=== PATIENT | female | born 1970 ===

== ENCOUNTER 2016-12-23 09:06 | Inpatient (IN) | payer MEDICAID, OTHER ==
[2016-12-23 09:16] VITALS: BMI 25.7
[2016-12-23] MEDS ORDERED: Sodium Chloride 0.9% 1,000 ML IV SCH (09:45)
[2016-12-23] MEDS ORDERED: Sodium Chloride 0.9% 1,000 ML ONE (09:53)
--- NOTE | 2016-12-23 09:54 | C.PDOC ---
History Of Present Illness 46-year-old female, PMHx includes Diabetes, Hypertension and Hyperlipidemia, presents to the emergency department, sent by PMD for abnormal bloodwork, that shows a low Sodium of 126 and high triglycerides. Patient is complaining of intermittent abdominal pain that she has had "for a while." Pain is in left flank and epigastric region. She notes three episodes of non-bloody/non-bilious vomiting three days ago. Currently denies any nausea. No fever or other complaints. Chief Complaint (Nursing): Abnormal Labs History Per: Patient History/Exam Limitations: no limitations Past Medical History Reviewed: Historical Data, Nursing Documentation, Vital Signs Vital Signs: Last Vital Signs Temp 98.3 F 12/23/16 09:30 Pulse 88 12/23/16 09:30 Resp 18 12/23/16 09:30 BP 130/88 12/23/16 09:30 Pulse Ox 99 12/23/16 12:14 - Medical History PMH: Anxiety, Depression, Diabetes, HTN, Hypercholesterolemia Denies: Hepatitis, HIV, Seizures, Sexually Transmitted Disease Surgical History: Family History: States: No Known Family Hx - Social History Hx Tobacco Use: No Hx Alcohol Use: No Hx Substance Use: No - Immunization History Hx Tetanus Toxoid Vaccination: Yes Hx Influenza Vaccination: No Hx Pneumococcal Vaccination: No Review Of Systems Except As Marked, All Systems Reviewed And Found Negative. Constitutional: Negative for: Fever, Chills Cardiovascular: Negative for: Chest Pain Respiratory: Negative for: Shortness of Breath Gastrointestinal: Positive for: Nausea, Vomiting, Abdominal Pain Musculoskeletal: Negative for: Back Pain Skin: Negative for: Rash Physical Exam - Physical Exam Appears: Non-toxic, No Acute Distress Skin: Warm, Dry, No Rash Head: Atraumatic, Normacephalic Eye(s): bilateral: Normal Inspection, PERRL, EOMI Nose: Normal Oral Mucosa: Moist Lips: Normal Appearing Neck: Normal ROM Cardiovascular: Rhythm Regular, No Murmur Respiratory: Normal Breath Sounds, No Accessory Muscle Use Gastrointestinal/Abdominal: Soft, No Tenderness Back: Normal Inspection Extremity: Normal ROM Neurological/Psych: Oriented x3, Normal Speech ED Course And Treatment - Laboratory Results Result Diagrams: 12/23/16 10:06 12/23/16 10:06 O2 Sat by Pulse Oximetry: 99 Medical Decision Making Medical Decision Making: pt with outpt labs shows triglycerides, >5000. ekg nsr [address] t wave changes 1215: ct unrarkable. case discussed with dr stacy, will admit for possible plasma exchange Disposition - Disposition Disposition Time: 13:13 Condition: STABLE - Clinical Impression Clinical Impression: Hypertriglyceridemia - Scribe Statement The provider has reviewed the documentation as recorded by the Scribe (Gilles Soria) All medical record entries made by the Scribe were at my direction and personally dictated by me. I have reviewed the chart and agree that the record accurately reflects my personal performance of the history, physical exam, medical decision making, and the department course for this patient. I have also personally directed, reviewed, and agree with the discharge instructions and disposition. Decision To Admit - Pt Status Changed To: Hospital Disposition Of: Inpatient - Admit Certification Admit to Inpatient:: After my assessment, the patient will require hospitalization for at least two midnights. This is because of the severity of symptoms shown, intensity of services needed, and/or the medical risk in this patient being treated as an outpatient. - InPatient: Physician Admission Certification: I certify that this patient requires 2 or more midnights of care for the following reason:: pt will likely need plasma exchange for increased triglycerides - . Bed Request Type: Regular Admitting Physician: Dean Manzanares Patient Diagnosis: Hypertriglyceridemia
[2016-12-23 10:11] LABS: BASO # 0.1 K/uL (0.0-0.2); BASO % 1.6 % (0.0-2.0); EOS % 0.6 % (0.0-4.0); LYMPH # 2.8 K/uL (1.0-4.3); LYMPH % 45.4 % (20.0-40.0); MEAN PLATELET VOLUME 9.7 fL (7.2-11.7); MONO # 0.3 K/uL (0.0-0.8); MONO % 5.2 % (0.0-10.0); NEUT # 2.9 K/uL (1.8-7.0); NEUT % 47.2 % (50.0-75.0); NRBC % 0.4 % (0.0-2.0); RBC 4.39 Mil/uL (3.80-5.20); RED CELL DISTRIBUTION WIDTH 13.3 % (11.5-14.5); WHITE BLOOD COUNT 6.1 K/uL (4.8-10.8)
[2016-12-23 10:17] LABS: ALBUMIN 3.5 g/dL (3.5-5.0)
[2016-12-23 10:20] LABS: ALB/GLOB RATIO 0.9 (1.0-2.1); AST/SGOT 51 U/L (14-36); BLOOD UREA NITROGEN 11 mg/dL (7-17); GFR AFRICAN-AMERICAN > 60; GFR NON-AFRICAN AMERICAN > 60; INR 0.9; PROTHROMBIN TIME 10.1 SECONDS (9.7-12.2)
[2016-12-23 10:21] LABS: ALT/SGPT 39 U/L (9-52); CALCIUM 8.1 mg/dl (8.6-10.4); LIPASE 137 U/L (23-300)
[2016-12-23 10:45] LABS: OSMOLALITY,URINE 801 mosm/kg (300-1000)
[2016-12-23 11:03] LABS: MEAN CORPUSCULAR HEMOGLOBIN 28.7 pg (27.0-31.0); MEAN CORPUSCULAR HGB CONC 28.7 g/dL (33.0-37.0)
[2016-12-23 11:06] LABS: HEMOGLOBIN 12.4 g/dL (11.0-16.0)
--- NOTE | 2016-12-23 11:46 | CT ---
PROCEDURE: CT scan abdomen pelvis dated 12/23/2016. HISTORY: Left flank pain. Technologist notation indicates hysterectomy 2010 COMPARISON: Comparison made with prior CT scan abdomen pelvis 02/03/2015 TECHNIQUE: Contiguous axial images of the abdomen and pelvis performed without oral or intravenous contrast material. Additional 2 dimensional sagittal and coronal reformats provided. Listen Radiation dose: Total exam DLP = 913.01 mGy-cm. This CT exam was performed using one or more of the following dose reduction techniques: Automated exposure control, adjustment of the mA and/or kV according to patient size, and/or use of iterative reconstruction technique. FINDINGS: LOWER THORAX: Bases are clear. No infiltrate effusion or basilar pneumothorax. Heart size normal. No evidence of significant pericardial effusion. LIVER: Liver is enlarged measuring nearly 20 cm in CC dimension. Moderate to significant fatty hepatic infiltration with some minimal fatty sparing about the gallbladder fossa. GALLBLADDER AND BILE DUCTS: The gallbladder is physiologically distended. No evidence of intraluminal gallbladder calculi. PANCREAS: Visualized portions of the pancreas appear unremarkable. No pancreatic mass collection or calcification. No significant pancreatic ductal dilatation. . SPLEEN: Spleen is upper limits of normal measuring approximately 12.4 cm in AP dimension. No splenic mass collection or calcification. ADRENALS: No adrenal lesions. KIDNEYS AND URETERS: There are 2 tiny and nonobstructing calculi lower pole left kidney 1 measuring 3 mm the other measuring 2 mm. . No definitive evidence of left-sided hydronephrosis. Rule out recently passed calculus The kidneys are relatively symmetric in size. No renal mass or collection seen. BLADDER: Urinary bladder is distended. No evidence of intraluminal urinary bladder calculi. REPRODUCTIVE: Uterus is not visualized consistent with prior hysterectomy. APPENDIX: Normal-appearing appendix best seen on coronal image number [id number]. No periappendiceal inflammatory changes BOWEL: Evaluation of the bowel is limited due to the lack of oral contrast material. Stomach is nondistended which presumably accounts for mild thick-walled appearance. Visualized loops of small bowel exhibit normal contour and caliber. No evidence of acute mechanical small bowel obstruction. Moderately large amount of stool seen throughout the colon consistent with mild fecal retention/constipation. PERITONEUM: Unremarkable. No fluid collection. No free air. LYMPH NODES: No significant/bulky adenopathy VASCULATURE: Unremarkable. No aortic aneurysm. BONES: Minor multilevel degenerative spondylosis of the lumbar spine. OTHER FINDINGS: None. IMPRESSION: There are 2 small nonobstructing calculi lower pole left kidney. No evidence of joshua hydronephrosis. No evidence of urinary bladder calculi seen. Status posthysterectomy. Hepatomegaly with moderate to significant fatty hepatic infiltration. Borderline splenomegaly. Mild constipation.
[2016-12-23] MEDS: Sodium Chloride 0.9% 1,000 ML IV SCH (14:17)
[2016-12-23 14:33] VITALS: RESP 20
--- NOTE | 2016-12-23 15:24 | CP.PCM.HP ---
<Charla GardinerKemar - Last Filed: 12/23/16 15:55> History of Present Illness - History of Present Illness History of Present Illness: CC: high triglycerides, cholesterol, and hyponatremia HPI: 46 year old female with PMhx of HTN, DM, hyperlipidemia, anxiety, depression, and arthritis, present to the ED for high triglycerides, cholesterol and hyponatremia. The patient was referred to the ED by her PMD, Dr. Chapman. She brought her lab results with her, which showed her triglycerides were 4556, cholesterol 718, sodium 126, and an A1c of 11.2. On admission, the patients cholesterol was 428 and the triglycerides were 5681. The patient reports going to the hospital for high triglycerides and cholesterol 7 years ago. Patient also reports have left flank pain and has stones in her kidneys for 3 months. She also reports having an on and off headache when she is stressed. Two weeks ago, the patient was depressed, nauseas and had episodes of vomiting but that resolved last week. Patient denies chest pain, abdominal pain, fever, chills, leg pain and swelling, nausea , and vision changes. PMD: Dr. Chapman PMHx: HTN, hyperlipidemia, DM, anxiety, depression, arthritis, two episodes of tachycardia (hospitalized 06/2016, 07/2016) PSx: ovarian cyst removal 1999, Cesarian section 2001 FamHx: mother/grandmother- [place]; "everyone has DM and high cholesterol" SocHx: denies tobacco, alcohol, and drug use; lives with her son; unemployed Allergies: NKDA Medications: Metformin 1,000mg BID, Glimepiride 4mg BID, Losartan potassium 100mg daily, trazadone 50mg daily, escitalopram 20mg daily, duloxetine 20mg daily, fenofibrate 200mg daily, atorvastatin 20mg daily, topiramate 50mg daily , vitamin D2 1.25mg once a week. Present on Admission - Present on Admission Any Indicators Present on Admission: Yes History of Uncontrolled Diabetes: Yes Review of Systems - Constitutional Constitutional: Headache. absent: Fatigue, Fever, Weakness - EENT Eyes: absent: Change in Vision, Other Visual Disturbances, Loss of Vision - Cardiovascular Cardiovascular: absent: Chest Pain, Dyspnea, Edema, Palpitations - Respiratory Respiratory: absent: Cough, Dyspnea - Gastrointestinal Gastrointestinal: absent: Abdominal Pain, Diarrhea, Nausea, Vomiting - Genitourinary Genitourinary: Flank Pain, Hx Renal/Bladder Calculi. absent: Dysuria, Urinary Frequency - Integumentary Integumentary: absent: Swelling - Neurological Neurological: Headaches. absent: Dizziness, Loss of Vision - Psychiatric Psychiatric: Anxiety, Depression - Endocrine Endocrine: Polyuria. absent: Palpitations Past Patient History - Infectious Disease Hx of Infectious Diseases: None - Past Social History Smoking Status: Never Smoked - CARDIAC Hx Hypercholesterolemia: Yes Hx Hypertension: Yes - PULMONARY Hx Tuberculosis: No - NEUROLOGICAL Hx Seizures: No - ENDOCRINE/METABOLIC Hx Diabetes Mellitus Type 2: Yes - HEMATOLOGICAL/ONCOLOGICAL Hx Human Immunodeficiency Virus (HIV): No - GENITOURINARY/GYNECOLOGICAL Hx Sexually Transmitted Disorders: No - PSYCHIATRIC Hx Anxiety: Yes Hx Depression: Yes Hx Substance Use: No - SURGICAL HISTORY Hx Surgeries: Yes Hx Section: Yes Hx Hysterectomy: Yes Other/Comment: fibroid surgery - ANESTHESIA Hx Anesthesia: Yes Hx Anesthesia Reactions: No Meds Allergies/Adverse Reactions: Allergies Allergy/AdvReac Type Severity Reaction Status Date / Time No Known Allergies Allergy Verified 12/23/16 09:11 Physical Exam - Head Exam Head Exam: NORMAL INSPECTION, NORMOCEPHALIC - Eye Exam Eye Exam: EOMI, Normal appearance - ENT Exam ENT Exam: Mucous Membranes Moist - Neck Exam Neck exam: Positive for: Full Rom, Normal Inspection - Respiratory Exam Respiratory Exam: Clear to Auscultation Bilateral, NORMAL BREATHING PATTERN. absent: Rales, Rhonchi, Wheezes - Cardiovascular Exam Cardiovascular Exam: REGULAR RHYTHM, +S1, +S2. absent: Systolic Murmur - GI/Abdominal Exam GI & Abdominal Exam: Normal Bowel Sounds, Soft, Tenderness (epigastric with deep palpation) - Extremities Exam Extremities exam: Positive for: normal inspection, pedal pulses present. Negative for: calf tenderness, pedal edema, tenderness - Back Exam Back exam: CVA tenderness (L) - Neurological Exam Neurological exam: Alert, Oriented x3 - Psychiatric Exam Psychiatric exam: Normal Affect, Normal Mood - Skin Skin Exam: Dry, Intact, Normal Color, Warm Results - Vital Signs Recent Vital Signs: Last Vital Signs Temp 98.2 F 12/23/16 14:08 Pulse 93 H 12/23/16 14:08 Resp 20 12/23/16 14:08 BP 139/85 12/23/16 14:08 Pulse Ox 98 12/23/16 14:08 - Labs Result Diagrams: 12/23/16 10:06 12/23/16 10:06 Assessment & Plan (1) Hypertriglyceridemia Assessment and Plan: Lab results from PMD: TG 4556, Cholesterol 718 On admission: TG 5681, Cholesterol 428 Cardio consult: Dr. Kaminski, help appreciated. Lipid panel: f/u Tricor 145mg PO QPM Lopid 600mg PO BID Crestor 20mg PO HS Status: Acute (2) Hyponatremia Assessment and Plan: Lab results from PMD: Na+ 126 On admission: Na+ 133, Serum Osmolality 302 Urine Osmolality 801, Urine random Na+ 56 NS @100mls/hr Monitor CMP Status: Acute (3) Diabetes Assessment and Plan: A1c: 11.2 Accuchecks ISS high Lantus 10 units HS Status: Acute (4) HTN (hypertension) Assessment and Plan: Monitor BP On admission: 130/88 Continue home medication: Losartan 100mg PO daily Status: Acute (5) Left flank pain Assessment and Plan: As per patient, has history of stones and pain for the past 3 months UA: f/u Abdominal US: f/u Rocephin 1gm IV BID Status: Acute (6) Depression Assessment and Plan: Continue home medications: escitalopram 20mg daily, duloxetine 20mg daily Status: Acute (7) Prophylactic measure Assessment and Plan: SCDs Pepcid 20mg PO BID Heparin 5,000 units SC Q8 Heart Healthy Diet, 2gm Accuchecks Status: Acute <Manzanares,Peter H - Last Filed: 12/24/16 09:07> Results - Vital Signs Recent Vital Signs: Last Vital Signs Temp 98.3 F 12/24/16 07:53 Pulse 77 12/24/16 07:53 Resp 20 12/24/16 07:53 BP 145/88 12/24/16 07:53 Pulse Ox 96 12/24/16 07:53 - Labs Result Diagrams: 12/24/16 06:27 12/24/16 06:27 Labs: Laboratory Results - last 24 hr 12/23/16 12/23/16 12/24/16 16:34 21:13 06:27 WBC 7.5 RBC 4.25 Hgb 12.8 Hct 37.2 MCV 87.6 MCH 30.0 MCHC 34.3 RDW 13.3 Plt Count 236 MPV 10.0 Neut % (Auto) 38.1 L Lymph % (Auto) 54.6 H [place] % (Auto) 6.1 Eos % (Auto) 0.5 Baso % (Auto) 0.7 Neut # 2.9 Lymph # 4.1 [place] # 0.5 Eos # 0.0 Baso # 0.1 Sodium Potassium Chloride Carbon Dioxide Anion Gap BUN Creatinine Est GFR ( Amer) Est GFR (Non-Af Amer) POC Glucose (mg/dL) 290 H 89 Random Glucose Calcium Total Bilirubin AST ALT Alkaline Phosphatase Total Protein Albumin Globulin Albumin/Globulin Ratio 12/24/16 12/24/16 06:27 07:08 WBC RBC Hgb Hct MCV MCH MCHC RDW Plt Count MPV Neut % (Auto) Lymph % (Auto) [place] % (Auto) Eos % (Auto) Baso % (Auto) Neut # Lymph # [place] # Eos # Baso # Sodium 129 L Potassium 4.4 Chloride 98 Carbon Dioxide 20 L Anion Gap 15 BUN 8 Creatinine 0.5 L Est GFR ( Amer) > 60 Est GFR (Non-Af Amer) > 60 POC Glucose (mg/dL) 259 H Random Glucose 220 H Calcium 7.7 L Total Bilirubin 1.1 AST 41 H ALT 43 Alkaline Phosphatase 94 Total Protein 6.4 Albumin 3.1 L Globulin 3.3 Albumin/Globulin Ratio 0.9 L Attending/Attestation - Attestation I have personally seen and examined this patient.: Yes I have fully participated in the care of the patient.: Yes I have reviewed all pertinent clinical information: Yes Notes (Text): Medical Attending: Patient was seen and examined by me. She was not in any acute distress when seen in ER 8A. She does have a very elevated blood glucose as well as cholesterol levels. She will need to have medications adjusted. There was some concern as well over potential hyponatremia however this was ok when checked in the ER. It is possible that the elevated cholesterol/ triglycerides found outpatient was interfereing with the Na level.
[2016-12-23] MEDS: (Novolin R) Insulin Human Regular 100 units/ml vial SC SCH ×2 (17:32→22:20)
[2016-12-23] MEDS: (Lantus) Insulin Glargine, Recombinant SC SCH (22:20)
[2016-12-24] MEDS: Sodium Chloride 0.9% 1,000 ML IV SCH ×4 (03:30→22:52)
[2016-12-24 06:48] LABS: BASO # 0.1 K/uL (0.0-0.2); BASO % 0.7 % (0.0-2.0); EOS % 0.5 % (0.0-4.0); LYMPH # 4.1 K/uL (1.0-4.3); LYMPH % 54.6 % (20.0-40.0); MONO # 0.5 K/uL (0.0-0.8); MONO % 6.1 % (0.0-10.0); NEUT # 2.9 K/uL (1.8-7.0); NEUT % 38.1 % (50.0-75.0); NRBC % 0.1 % (0.0-2.0); RED CELL DISTRIBUTION WIDTH 13.3 % (11.5-14.5); WHITE BLOOD COUNT 7.5 K/uL (4.8-10.8)
[2016-12-24 06:55] LABS: ALB/GLOB RATIO 0.9 (1.0-2.1); ALBUMIN 3.1 g/dL (3.5-5.0); ALT/SGPT 43 U/L (9-52); AST/SGOT 41 U/L (14-36); BLOOD UREA NITROGEN 8 mg/dL (7-17); CALCIUM 7.7 mg/dl (8.6-10.4); GFR AFRICAN-AMERICAN > 60; GFR NON-AFRICAN AMERICAN > 60
[2016-12-24 08:12] LABS: HEMOGLOBIN 12.8 g/dL (11.0-16.0); MEAN CELL VOLUME 87.6 fL (81.0-99.0); MEAN CORPUSCULAR HGB CONC 34.3 g/dL (33.0-37.0); RBC 4.25 Mil/uL (3.80-5.20)
--- NOTE | 2016-12-24 08:52 | CP.PCM.CON ---
<Simba Alvarez - Last Filed: 12/24/16 10:23> History of Present Illness - History of Present Illness History of Present Illness: PGY2 progress note for cardiology consult- Dr. Kaminski Ms. Salcido is a 46y/o F with PMhx of HTN, DM, hyperlipidemia, anxiety, depression and arthritis, who was sent into our ED for elevated triglycerides, cholesterol and hyponatremia. She reported to ED following the advice of her PMD Dr. Chapman due to recent lab results as follows: triglycerides 4556, cholesterol 718, sodium 126, and an A1c of 11.2. On admission, the patients was retested resulting in cholesterol of 428 and triglycerides were 5681. Patient also reports have left flank pain she believed were related to kidney stones and relapsing-remitting headache associated with stressed. Patient denied fever, chills, visual changes, chest pain, abdominal pain, lower extremity pain/swelling, and nausea. No acute events overnight as per nursing. This morning Ms. Salcido states that she is feeling well, only complains of a small headache. She denies chest pain, shortness of breath, n/v/d/c. She reports to me this morning that she does forget to take her medications at home sometimes and it is not uncommon for her to miss doses. PMD: Dr. Chapman PMHx: HTN, HLD, DM, anxiety, depression, arthritis, two episodes of tachycardia (hospitalized 06/2016, 07/2016) PSx: ovarian cyst removal 1999, Cesarian section 2001 FamHx: mother/grandmother- [place]; "everyone has DM and high cholesterol" SocHx: denies tobacco, alcohol, and drug use; lives with her son; unemployed Allergies: NKDA Medications: Metformin 1,000mg BID, Glimepiride 4mg BID, Losartan potassium 100mg daily, trazadone 50mg daily, escitalopram 20mg daily, duloxetine 20mg daily, fenofibrate 200mg daily, atorvastatin 20mg daily, topiramate 50mg daily , vitamin D2 1.25mg once a week. Review of Systems - Constitutional Constitutional: absent: Fever, Night Sweats - EENT Eyes: As Per HPI. absent: Blurred Vision - Cardiovascular Cardiovascular: absent: Chest Pain, Chest Pain at Rest, Diaphoresis, Syncope - Respiratory Respiratory: absent: Dyspnea, Wheezing - Gastrointestinal Gastrointestinal: absent: Abdominal Pain, Vomiting - Neurological Neurological: absent: Syncope Past Patient History - Infectious Disease Hx of Infectious Diseases: None - Past Medical History & Family History Past Medical History?: Yes - Past Social History Smoking Status: Never Smoked - CARDIAC Hx Hypercholesterolemia: Yes Hx Hypertension: Yes - PULMONARY Hx Tuberculosis: No - NEUROLOGICAL Hx Seizures: No - ENDOCRINE/METABOLIC Hx Diabetes Mellitus Type 2: Yes - HEMATOLOGICAL/ONCOLOGICAL Hx Human Immunodeficiency Virus (HIV): No - MUSCULOSKELETAL/RHEUMATOLOGICAL Hx Falls: No - GENITOURINARY/GYNECOLOGICAL Hx Sexually Transmitted Disorders: No - PSYCHIATRIC Hx Anxiety: Yes Hx Depression: Yes Hx Substance Use: No - SURGICAL HISTORY Hx Surgeries: Yes Hx Section: Yes Hx Hysterectomy: Yes (November 2010) Other/Comment: fibroid surgery - ANESTHESIA Hx Anesthesia: Yes Hx Anesthesia Reactions: No Meds Allergies/Adverse Reactions: Allergies Allergy/AdvReac Type Severity Reaction Status Date / Time No Known Allergies Allergy Verified 12/23/16 09:11 - Medications Medications: Current Medications Acetaminophen (Tylenol 325mg Tab) 650 mg PO Q6 PRN PRN Reason: Pain, Mild (1-3) Last Admin: 12/23/16 19:47 Dose: 650 mg Famotidine (Pepcid) 20 mg PO BID [facility] Last Admin: 12/23/16 17:27 Dose: 20 mg Fenofibrate (Tricor) 145 mg PO QPM [facility] Last Admin: 12/23/16 17:27 Dose: 145 mg Gemfibrozil (Lopid) 600 mg PO BID [facility] Last Admin: 12/23/16 17:27 Dose: 600 mg Heparin Sodium (Porcine) (Heparin) 5,000 units SC Q8 [facility] Last Admin: 12/24/16 06:12 Dose: 5,000 units Sodium Chloride (Sodium Chloride 0.9%) 1,000 mls @ 100 mls/hr IV .Q10H [facility] Last Admin: 12/24/16 03:30 Dose: Not Given Ceftriaxone Sodium 1 gm/ (Sodium Chloride) 100 mls @ 100 mls/hr IVPB Q12H [facility] Last Admin: 12/24/16 03:21 Dose: 100 mls/hr Insulin Glargine (Lantus) 10 unit SC HS [facility] Last Admin: 12/23/16 22:20 Dose: 10 units Insulin Human Regular (Novolin R) 0 unit SC ACHS [facility] PRN Reason: Protocol Last Admin: 12/23/16 22:20 Dose: Not Given Losartan Potassium (Cozaar) 100 mg PO DAILY [facility] Pneumococcal Polyvalent Vaccine (Pneumovax 23 Vaccine) 0.5 ml IM .ONCE ONE Stop: 12/25/16 10:01 Rosuvastatin Calcium (Crestor) 20 mg PO HS [facility] Last Admin: 12/23/16 22:19 Dose: 20 mg Physical Exam - Constitutional Appears: No Acute Distress - Eye Exam Eye Exam: EOMI, Normal appearance, PERRL - ENT Exam ENT Exam: Mucous Membranes Moist - Respiratory Exam Respiratory Exam: Clear to Auscultation Bilateral, NORMAL BREATHING PATTERN. absent: Rhonchi, Wheezes - Cardiovascular Exam Cardiovascular Exam: REGULAR RHYTHM, +S1, +S2 - GI/Abdominal Exam GI & Abdominal Exam: Soft. absent: Tenderness - Extremities Exam Extremities exam: Positive for: normal inspection. Negative for: calf tenderness, pedal edema - Neurological Exam Neurological exam: Alert, Oriented x3 Results - Vital Signs Recent Vital Signs: Last Vital Signs Temp 98.3 F 12/24/16 07:53 Pulse 77 12/24/16 07:53 Resp 20 12/24/16 07:53 BP 145/88 12/24/16 07:53 Pulse Ox 96 12/24/16 07:53 - Labs Result Diagrams: 12/24/16 06:27 12/24/16 06:27 Labs: Laboratory Results - last 24 hr 12/23/16 12/23/16 12/24/16 16:34 21:13 06:27 WBC 7.5 RBC 4.25 Hgb 12.8 Hct 37.2 MCV 87.6 MCH 30.0 MCHC 34.3 RDW 13.3 Plt Count 236 MPV 10.0 Neut % (Auto) 38.1 L Lymph % (Auto) 54.6 H [place] % (Auto) 6.1 Eos % (Auto) 0.5 Baso % (Auto) 0.7 Neut # 2.9 Lymph # 4.1 [place] # 0.5 Eos # 0.0 Baso # 0.1 Sodium Potassium Chloride Carbon Dioxide Anion Gap BUN Creatinine Est GFR ( Amer) Est GFR (Non-Af Amer) POC Glucose (mg/dL) 290 H 89 Random Glucose Calcium Total Bilirubin AST ALT Alkaline Phosphatase Total Protein Albumin Globulin Albumin/Globulin Ratio 12/24/16 12/24/16 06:27 07:08 WBC RBC Hgb Hct MCV MCH MCHC RDW Plt Count MPV Neut % (Auto) Lymph % (Auto) [place] % (Auto) Eos % (Auto) Baso % (Auto) Neut # Lymph # [place] # Eos # Baso # Sodium 129 L Potassium 4.4 Chloride 98 Carbon Dioxide 20 L Anion Gap 15 BUN 8 Creatinine 0.5 L Est GFR ( Amer) > 60 Est GFR (Non-Af Amer) > 60 POC Glucose (mg/dL) 259 H Random Glucose 220 H Calcium 7.7 L Total Bilirubin 1.1 AST 41 H ALT 43 Alkaline Phosphatase 94 Total Protein 6.4 Albumin 3.1 L Globulin 3.3 Albumin/Globulin Ratio 0.9 L Assessment & Plan - Assessment and Plan (Free Text) Assessment: 46 y/o F w/ hx of HTN, DM, HLD presenting from PMD for elevated triglycerides, cholesterol, hyponatremia and A1C of 11.2 Plan: Hypertriglyceridemia Lab results from PMD: TG 4556, Cholesterol 718 Repeat labs on admission: TG 5681, Cholesterol 428 Lipid panel: f/u C/w Fenofibrate 145mg PO QPM C/w Gemfibrozole 600mg PO BID C/w Crestor 20mg PO HS Start Lovaza 1g PO BID Recommending nephrology consult with consideration for use of Samsca <Barbra Kaminski A - Last Filed: 12/24/16 10:32> Meds - Medications Medications: Current Medications Acetaminophen (Tylenol 325mg Tab) 650 mg PO Q6 PRN PRN Reason: Pain, Mild (1-3) Last Admin: 12/23/16 19:47 Dose: 650 mg Famotidine (Pepcid) 20 mg PO BID [facility] Last Admin: 12/24/16 09:42 Dose: 20 mg Fenofibrate (Tricor) 145 mg PO QPM [facility] Last Admin: 12/23/16 17:27 Dose: 145 mg Gemfibrozil (Lopid) 600 mg PO BID [facility] Last Admin: 12/24/16 09:42 Dose: 600 mg Heparin Sodium (Porcine) (Heparin) 5,000 units SC Q8 [facility] Last Admin: 12/24/16 06:12 Dose: 5,000 units Sodium Chloride (Sodium Chloride 0.9%) 1,000 mls @ 100 mls/hr IV .Q10H [facility] Last Admin: 12/24/16 09:47 Dose: Not Given Ceftriaxone Sodium 1 gm/ (Sodium Chloride) 100 mls @ 100 mls/hr IVPB Q12H [facility] Last Admin: 12/24/16 03:21 Dose: 100 mls/hr Insulin Glargine (Lantus) 10 unit SC [facility] Last Admin: 12/23/16 22:20 Dose: 10 units Insulin Human Regular (Novolin R) 0 unit SC ACHS [facility] PRN Reason: Protocol Last Admin: 12/24/16 09:45 Dose: 6 unit Losartan Potassium (Cozaar) 100 mg PO DAILY [facility] Last Admin: 12/24/16 09:42 Dose: 100 mg Dfvmy-9-Dmpq Ethyl Esters (Lovaza) 1 gm PO BID [facility] Pneumococcal Polyvalent Vaccine (Pneumovax 23 Vaccine) 0.5 ml IM .ONCE ONE Stop: 12/25/16 10:01 Rosuvastatin Calcium (Crestor) 20 mg PO [facility] Last Admin: 12/23/16 22:19 Dose: 20 mg Results - Vital Signs Recent Vital Signs: Last Vital Signs Temp 98.3 F 12/24/16 07:53 Pulse 77 12/24/16 07:53 Resp 20 12/24/16 07:53 BP 145/88 12/24/16 07:53 Pulse Ox 96 12/24/16 07:53 - Labs Result Diagrams: 12/24/16 06:27 12/24/16 06:27 Labs: Laboratory Results - last 24 hr 12/23/16 12/23/16 12/24/16 16:34 21:13 06:27 WBC 7.5 RBC 4.25 Hgb 12.8 Hct 37.2 MCV 87.6 MCH 30.0 MCHC 34.3 RDW 13.3 Plt Count 236 MPV 10.0 Neut % (Auto) 38.1 L Lymph % (Auto) 54.6 H [place] % (Auto) 6.1 Eos % (Auto) 0.5 Baso % (Auto) 0.7 Neut # 2.9 Lymph # 4.1 [place] # 0.5 Eos # 0.0 Baso # 0.1 Sodium Potassium Chloride Carbon Dioxide Anion Gap BUN Creatinine Est GFR ( Amer) Est GFR (Non-Af Amer) POC Glucose (mg/dL) 290 H 89 Random Glucose Calcium Total Bilirubin AST ALT Alkaline Phosphatase Total Protein Albumin Globulin Albumin/Globulin Ratio 12/24/16 12/24/16 06:27 07:08 WBC RBC Hgb Hct MCV MCH MCHC RDW Plt Count MPV Neut % (Auto) Lymph % (Auto) [place] % (Auto) Eos % (Auto) Baso % (Auto) Neut # Lymph # [place] # Eos # Baso # Sodium 129 L Potassium 4.4 Chloride 98 Carbon Dioxide 20 L Anion Gap 15 BUN 8 Creatinine 0.5 L Est GFR ( Amer) > 60 Est GFR (Non-Af Amer) > 60 POC Glucose (mg/dL) 259 H Random Glucose 220 H Calcium 7.7 L Total Bilirubin 1.1 AST 41 H ALT 43 Alkaline Phosphatase 94 Total Protein 6.4 Albumin 3.1 L Globulin 3.3 Albumin/Globulin Ratio 0.9 L Attending/Attestation - Attestation I have personally seen and examined this patient.: Yes I have fully participated in the care of the patient.: Yes I have reviewed all pertinent clinical information: Yes Notes (Text): 12/24/16 10:31 Will add lovaza for added effect., No cp sob
[2016-12-24] MEDS: (Novolin R) Insulin Human Regular 100 units/ml vial SC SCH ×4 (09:45→22:50)
--- NOTE | 2016-12-24 11:33 | US ---
HISTORY: fatty liver COMPARISON: December 23, 2016. CT abdomen and pelvis TECHNIQUE: Sonographic evaluation of the abdomen. FINDINGS: LIVER: Measures 21.6 cm. Hepatopedal blood flow. Fatty infiltration manifest ultrasonographically as increased echogenicity of the liver parenchyma. No mass. No intrahepatic bile duct dilatation. GALLBLADDER: Unremarkable. No gallstones. COMMON BILE DUCT: Measures 2.8 mm. No stones. No dilatation. PANCREAS: Obscured by overlying bowel gas. Non diagnostic assessment of the pancreas RIGHT KIDNEY: Measures 11.2 x 4.4cm. Normal echogenicity. No calculus, mass, or hydronephrosis. LEFT KIDNEY: Measures 6.2 x 11.8cm. Normal echogenicity. No calculus, mass, or hydronephrosis. SPLEEN: Normal in size and contour. No mass. AORTA: No aneurysmal dilatation. IVC: Unremarkable. OTHER FINDINGS: None. IMPRESSION: Hepatomegaly/hepatic steatosis. No focal abnormalities with respect to the liver. Otherwise unremarkable study. Limitations of the current examination: Nondiagnostic assessment of the pancreas.
[2016-12-24] MEDS: Omega-3-Acid Ethyl Esters 1 GM Cap PO SCH ×2 (11:43→17:59)
[2016-12-24 16:13] VITALS: O2SAT 98
--- NOTE | 2016-12-24 19:47 | CP.PCM.PN ---
<AceAnibal R - Last Filed: 12/24/16 19:39> Subjective - Date & Time of Evaluation Date of Evaluation: 12/24/16 Time of Evaluation: 13:00 - Subjective Subjective: Patient was seen and examined at bedside. Patient was complaining of left flank pain which has been intermittent for the past 2 years. She also c/o mild headache. Patient denies chest pain, shortness of breath, n/v/d/c, fever, bleeding, blurry vision. Objective - Vital Signs/Intake and Output Vital Signs (last 24 hours): Temp Pulse Resp BP Pulse Ox 98.1 F 89 20 138/89 98 12/24/16 16:00 12/24/16 16:00 12/24/16 16:00 12/24/16 16:00 12/24/16 16:00 Intake and Output: 12/24/16 12/25/16 18:59 06:59 Intake Total 1160 Balance 1160 - Medications Medications: Current Medications Acetaminophen (Tylenol 325mg Tab) 650 mg PO Q6 PRN PRN Reason: Pain, Mild (1-3) Last Admin: 12/24/16 11:43 Dose: 650 mg Famotidine (Pepcid) 20 mg PO BID [facility] Last Admin: 12/24/16 17:59 Dose: 20 mg Fenofibrate (Tricor) 145 mg PO QPM [facility] Last Admin: 12/24/16 17:59 Dose: 145 mg Gemfibrozil (Lopid) 600 mg PO BID [facility] Last Admin: 12/24/16 17:59 Dose: 600 mg Heparin Sodium (Porcine) (Heparin) 5,000 units SC Q8 [facility] Last Admin: 12/24/16 15:23 Dose: 5,000 units Sodium Chloride (Sodium Chloride 0.9%) 1,000 mls @ 100 mls/hr IV .Q10H [facility] Last Admin: 12/24/16 15:28 Dose: 100 mls/hr Ceftriaxone Sodium 1 gm/ (Sodium Chloride) 100 mls @ 100 mls/hr IVPB Q12H [facility] Last Admin: 12/24/16 15:23 Dose: 100 mls/hr Insulin Glargine (Lantus) 10 unit SC HS [facility] Last Admin: 12/23/16 22:20 Dose: 10 units Insulin Human Regular (Novolin R) 0 unit SC ACHS [facility] PRN Reason: Protocol Last Admin: 12/24/16 18:01 Dose: Not Given Losartan Potassium (Cozaar) 100 mg PO DAILY [facility] Last Admin: 12/24/16 09:42 Dose: 100 mg Ldnqr-0-Ziqm Ethyl Esters (Lovaza) 1 gm PO BID [facility] Last Admin: 12/24/16 17:59 Dose: 1 gm Pneumococcal Polyvalent Vaccine (Pneumovax 23 Vaccine) 0.5 ml IM .ONCE ONE Stop: 12/25/16 10:01 Rosuvastatin Calcium (Crestor) 20 mg PO HS [facility] Last Admin: 12/23/16 22:19 Dose: 20 mg - Labs Labs: 12/24/16 06:27 12/24/16 06:27 PT 10.1 SECONDS (9.7-12.2) 12/23/16 10:06 INR 0.9 12/23/16 10:06 APTT 31 SECONDS (21-34) 12/23/16 10:06 - Constitutional Appears: Well - Head Exam Head Exam: ATRAUMATIC, NORMAL INSPECTION, NORMOCEPHALIC - Eye Exam Eye Exam: EOMI, Normal appearance, PERRL - ENT Exam ENT Exam: Mucous Membranes Moist, Normal Exam - Neck Exam Neck Exam: Full ROM, Normal Inspection. absent: Lymphadenopathy - Respiratory Exam Respiratory Exam: Clear to Ausculation Bilateral, NORMAL BREATHING PATTERN - Cardiovascular Exam Cardiovascular Exam: REGULAR RHYTHM, +S1, +S2. absent: Murmur - GI/Abdominal Exam GI & Abdominal Exam: Soft, Normal Bowel Sounds. absent: Tenderness - Rectal Exam Rectal Exam: Deferred - Extremities Exam Extremities Exam: Full ROM, Normal Capillary Refill, Normal Inspection. absent : Joint Swelling, Pedal Edema - Neurological Exam Neurological Exam: Alert, Awake, Oriented x3 - Psychiatric Exam Psychiatric exam: Normal Affect, Normal Mood - Skin Skin Exam: Dry, Intact, Normal Color, Warm Assessment and Plan - Assessment and Plan (Free Text) Assessment: (1) Hypertriglyceridemia Assessment and Plan: 12/24: per cardio: added lovaza 1gm po bid. Lab results from PMD: TG 4556, Cholesterol 718 On admission: TG 5681, Cholesterol 428 Cardio consult: Dr. Kaminski, help appreciated. Lipid panel: f/u Tricor 145mg PO QPM Lopid 600mg PO BID Crestor 20mg PO HS Status: Acute (2) Hyponatremia Assessment and Plan: 12/24: per cardio: Recommending nephrology consult with consideration for use of Samsca 12/24: nephro consulted, Dr Camp Lab results from PMD: Na+ 126 On admission: Na+ 133, Serum Osmolality 302 Urine Osmolality 801, Urine random Na+ 56 NS @100mls/hr Monitor CMP Status: Acute (3) Diabetes Assessment and Plan: A1c: 11.2 Accuchecks ISS high Lantus 10 units HS Status: Acute (4) HTN (hypertension) Assessment and Plan: Monitor BP On admission: 130/88 Continue home medication: Losartan 100mg PO daily Status: Acute (5) Left flank pain Assessment and Plan: 12/24: patient stated today that she had a left kidney stone that was surgically treated [address] abd/pelvis: There are 2 small nonobstructing calculi lower pole left kidney. No evidence of joshua hydronephrosis. No evidence of urinary bladder calculi seen. Status posthysterectomy. Hepatomegaly with moderate to significant fatty hepatic infiltration. Borderline splenomegaly. Mild constipation. UA: f/u Abdominal US: Hepatomegaly/hepatic steatosis. No focal abnormalities with respect to the liver. Otherwise unremarkable study. Limitations of the current examination: Nondiagnostic assessment of the pancreas. Rocephin 1gm IV BID Status: Acute (6) Depression Assessment and Plan: Continue home medications: escitalopram 20mg daily, duloxetine 20mg daily Status: Acute (7) Prophylactic measure Assessment and Plan: SCDs Pepcid 20mg PO BID Heparin 5,000 units SC Q8 Heart Healthy Diet, 2gm Accuchecks Status: Acute <Dean Manzanares H - Last Filed: 12/25/16 08:00> Objective - Vital Signs/Intake and Output Vital Signs (last 24 hours): Temp Pulse Resp BP Pulse Ox 98.2 F 92 H 20 123/76 96 12/25/16 00:00 12/25/16 00:00 12/25/16 00:00 12/25/16 00:00 12/25/16 00:00 Intake and Output: 12/25/16 12/25/16 06:59 18:59 Intake Total 1200 Balance 1200 - Medications Medications: Current Medications Acetaminophen (Tylenol 325mg Tab) 650 mg PO Q6 PRN PRN Reason: Pain, Mild (1-3) Last Admin: 12/24/16 11:43 Dose: 650 mg Famotidine (Pepcid) 20 mg PO BID [facility] Last Admin: 12/24/16 17:59 Dose: 20 mg Fenofibrate (Tricor) 145 mg PO QPM [facility] Last Admin: 12/24/16 17:59 Dose: 145 mg Gemfibrozil (Lopid) 600 mg PO BID [facility] Last Admin: 12/24/16 17:59 Dose: 600 mg Heparin Sodium (Porcine) (Heparin) 5,000 units SC Q8 [facility] Last Admin: 12/25/16 05:06 Dose: 5,000 units Sodium Chloride (Sodium Chloride 0.9%) 1,000 mls @ 100 mls/hr IV .Q10H [facility] Last Admin: 12/25/16 03:16 Dose: 100 mls/hr Ceftriaxone Sodium 1 gm/ (Sodium Chloride) 100 mls @ 100 mls/hr IVPB Q12H [facility] Last Admin: 12/25/16 03:13 Dose: 100 mls/hr Insulin Glargine (Lantus) 10 unit SC [facility] Last Admin: 12/24/16 22:51 Dose: 10 units Insulin Human Regular (Novolin R) 0 unit SC ACHS [facility] PRN Reason: Protocol Last Admin: 12/24/16 22:50 Dose: Not Given Losartan Potassium (Cozaar) 100 mg PO DAILY [facility] Last Admin: 12/24/16 09:42 Dose: 100 mg Qpauo-7-Cosc Ethyl Esters (Lovaza) 1 gm PO BID [facility] Last Admin: 12/24/16 17:59 Dose: 1 gm Pneumococcal Polyvalent Vaccine (Pneumovax 23 Vaccine) 0.5 ml IM .ONCE ONE Stop: 12/25/16 10:01 Rosuvastatin Calcium (Crestor) 20 mg PO HS [facility] Last Admin: 12/24/16 22:47 Dose: 20 mg Trazodone HCl (Desyrel) 50 mg PO [facility] Last Admin: 12/24/16 22:47 Dose: 50 mg - Labs Labs: 12/24/16 06:27 12/24/16 06:27 PT 10.1 SECONDS (9.7-12.2) 12/23/16 10:06 INR 0.9 12/23/16 10:06 APTT 31 SECONDS (21-34) 12/23/16 10:06 Attending/Attestation - Attestation I have personally seen and examined this patient.: Yes I have fully participated in the care of the patient.: Yes I have reviewed all pertinent clinical information, including history, physical exam and plan: Yes Notes (Text): Medical Attending: Patient was seen and examined by me, agree with the above note by the resident. The patient has been doing ok. She reports flank pain for about two years, this is not why she is here. Her physician was concerned about her lab work and particulary the Na level as she had a low Na in the office. Here the Na is 129, 130 and possibly it was lower in the office due to the very high cholesterol/ triglycerides that she has. Now on Anisa Mensah Lovaza. thank you Dean Manzanares
[2016-12-24] MEDS: (Lantus) Insulin Glargine, Recombinant SC SCH (22:51)
[2016-12-24 23:10] LABS: HCG,QUALITATIVE URINE NEGATIVE (NEGATIVE)
[2016-12-24 23:13] LABS: URINE BACTERIA RARE (<OCC); URINE BILIRUBIN NEGATIVE (NEGATIVE); URINE BLOOD NEGATIVE (NEGATIVE); URINE CLARITY Clear (Clear); URINE COLOR Straw (YELLOW); URINE GLUCOSE (UA) 3+ mg/dL (Normal); URINE LEUKOCYTE ESTERASE NEG Leu/uL (Negative); URINE NITRATE NEGATIVE (NEGATIVE); URINE PROTEIN NEGATIVE (NEGATIVE); URINE UROBILINOGEN NORMAL mg/dL (0.2-1.0)
[2016-12-25] MEDS: Sodium Chloride 0.9% 1,000 ML IV SCH (03:16)
--- NOTE | 2016-12-25 06:30 | CP.PCM.PN ---
Subjective - Date & Time of Evaluation Date of Evaluation: 12/25/16 Time of Evaluation: 06:30 - Subjective Subjective: Pt tolerating PO no cp Objective - Vital Signs/Intake and Output Vital Signs (last 24 hours): Temp Pulse Resp BP Pulse Ox 98.2 F 92 H 20 123/76 96 12/25/16 00:00 12/25/16 00:00 12/25/16 00:00 12/25/16 00:00 12/25/16 00:00 Intake and Output: 12/24/16 12/25/16 18:59 06:59 Intake Total 1160 1200 Balance 1160 1200 - Medications Medications: Current Medications Acetaminophen (Tylenol 325mg Tab) 650 mg PO Q6 PRN PRN Reason: Pain, Mild (1-3) Last Admin: 12/24/16 11:43 Dose: 650 mg Famotidine (Pepcid) 20 mg PO BID [facility] Last Admin: 12/24/16 17:59 Dose: 20 mg Fenofibrate (Tricor) 145 mg PO QPM [facility] Last Admin: 12/24/16 17:59 Dose: 145 mg Gemfibrozil (Lopid) 600 mg PO BID [facility] Last Admin: 12/24/16 17:59 Dose: 600 mg Heparin Sodium (Porcine) (Heparin) 5,000 units SC Q8 [facility] Last Admin: 12/25/16 05:06 Dose: 5,000 units Sodium Chloride (Sodium Chloride 0.9%) 1,000 mls @ 100 mls/hr IV .Q10H [facility] Last Admin: 12/25/16 03:16 Dose: 100 mls/hr Ceftriaxone Sodium 1 gm/ (Sodium Chloride) 100 mls @ 100 mls/hr IVPB Q12H [facility] Last Admin: 12/25/16 03:13 Dose: 100 mls/hr Insulin Glargine (Lantus) 10 unit SC HS [facility] Last Admin: 12/24/16 22:51 Dose: 10 units Insulin Human Regular (Novolin R) 0 unit SC ACHS [facility] PRN Reason: Protocol Last Admin: 12/24/16 22:50 Dose: Not Given Losartan Potassium (Cozaar) 100 mg PO DAILY [facility] Last Admin: 12/24/16 09:42 Dose: 100 mg Rpwsp-1-Ungs Ethyl Esters (Lovaza) 1 gm PO BID [facility] Last Admin: 12/24/16 17:59 Dose: 1 gm Pneumococcal Polyvalent Vaccine (Pneumovax 23 Vaccine) 0.5 ml IM .ONCE ONE Stop: 12/25/16 10:01 Rosuvastatin Calcium (Crestor) 20 mg PO HS [facility] Last Admin: 12/24/16 22:47 Dose: 20 mg Trazodone HCl (Desyrel) 50 mg PO HS [facility] Last Admin: 12/24/16 22:47 Dose: 50 mg - Labs Labs: 12/24/16 06:27 12/24/16 06:27 PT 10.1 SECONDS (9.7-12.2) 12/23/16 10:06 INR 0.9 12/23/16 10:06 APTT 31 SECONDS (21-34) 12/23/16 10:06 - Constitutional Appears: Well - Head Exam Head Exam: ATRAUMATIC, NORMOCEPHALIC - Eye Exam Eye Exam: Normal appearance - ENT Exam ENT Exam: Mucous Membranes Moist - Respiratory Exam Respiratory Exam: Clear to Ausculation Bilateral. absent: Wheezes - Cardiovascular Exam Cardiovascular Exam: REGULAR RHYTHM - GI/Abdominal Exam GI & Abdominal Exam: Soft, Normal Bowel Sounds - Exam External exam: NORMAL EXTERNAL EXAM. absent: Ecchymosis - Extremities Exam Extremities Exam: Normal Inspection - Neurological Exam Neurological Exam: Awake - Psychiatric Exam Psychiatric exam: absent: Flat Affect - Skin Skin Exam: Dry Assessment and Plan (1) Hypertriglyceridemia Assessment & Plan: Continue BP Control new med Vespa also good med for increased triglycerides repeat blood work with pmd in one month Status: Acute
--- NOTE | 2016-12-25 07:46 | CP.PCM.PN ---
Subjective - Date & Time of Evaluation Date of Evaluation: 12/25/16 Time of Evaluation: 08:15 - Subjective Subjective: Patient was seen and examined at bedside. Objective - Vital Signs/Intake and Output Vital Signs (last 24 hours): Temp Pulse Resp BP Pulse Ox 98.2 F 92 H 20 123/76 96 12/25/16 00:00 12/25/16 00:00 12/25/16 00:00 12/25/16 00:00 12/25/16 00:00 Intake and Output: 12/25/16 12/25/16 06:59 18:59 Intake Total 1200 Balance 1200 - Medications Medications: Current Medications Acetaminophen (Tylenol 325mg Tab) 650 mg PO Q6 PRN PRN Reason: Pain, Mild (1-3) Last Admin: 12/24/16 11:43 Dose: 650 mg Famotidine (Pepcid) 20 mg PO BID [facility] Last Admin: 12/24/16 17:59 Dose: 20 mg Fenofibrate (Tricor) 145 mg PO QPM [facility] Last Admin: 12/24/16 17:59 Dose: 145 mg Gemfibrozil (Lopid) 600 mg PO BID [facility] Last Admin: 12/24/16 17:59 Dose: 600 mg Heparin Sodium (Porcine) (Heparin) 5,000 units SC Q8 [facility] Last Admin: 12/25/16 05:06 Dose: 5,000 units Sodium Chloride (Sodium Chloride 0.9%) 1,000 mls @ 100 mls/hr IV .Q10H [facility] Last Admin: 12/25/16 03:16 Dose: 100 mls/hr Ceftriaxone Sodium 1 gm/ (Sodium Chloride) 100 mls @ 100 mls/hr IVPB Q12H [facility] Last Admin: 12/25/16 03:13 Dose: 100 mls/hr Insulin Glargine (Lantus) 10 unit SC HS [facility] Last Admin: 12/24/16 22:51 Dose: 10 units Insulin Human Regular (Novolin R) 0 unit SC ACHS [facility] PRN Reason: Protocol Last Admin: 12/24/16 22:50 Dose: Not Given Losartan Potassium (Cozaar) 100 mg PO DAILY [facility] Last Admin: 12/24/16 09:42 Dose: 100 mg Cryha-4-Kweo Ethyl Esters (Lovaza) 1 gm PO BID [facility] Last Admin: 12/24/16 17:59 Dose: 1 gm Pneumococcal Polyvalent Vaccine (Pneumovax 23 Vaccine) 0.5 ml IM .ONCE ONE Stop: 12/25/16 10:01 Rosuvastatin Calcium (Crestor) 20 mg PO HS [facility] Last Admin: 12/24/16 22:47 Dose: 20 mg Trazodone HCl (Desyrel) 50 mg PO HS [facility] Last Admin: 12/24/16 22:47 Dose: 50 mg - Labs Labs: 12/24/16 06:27 12/24/16 06:27 PT 10.1 SECONDS (9.7-12.2) 12/23/16 10:06 INR 0.9 12/23/16 10:06 APTT 31 SECONDS (21-34) 12/23/16 10:06 Assessment and Plan - Assessment and Plan (Free Text) Assessment: (1) Hypertriglyceridemia Assessment and Plan: 12/24: per cardio: added lovaza 1gm po bid. Lab results from PMD: TG 4556, Cholesterol 718 On admission: TG 5681, Cholesterol 428 Cardio consult: Dr. Kaminski, help appreciated. Lipid panel: f/u Tricor 145mg PO QPM Lopid 600mg PO BID Crestor 20mg PO HS Status: Acute (2) Hyponatremia Assessment and Plan: 12/24: per cardio: Recommending nephrology consult with consideration for use of [facility] 12/24: nephro consulted, Dr Camp Lab results from PMD: Na+ 126 On admission: Na+ 133, Serum Osmolality 302 Urine Osmolality 801, Urine random Na+ 56 NS @100mls/hr Monitor CMP Status: Acute (3) Diabetes Assessment and Plan: A1c: 11.2 Accuchecks ISS high Lantus 10 units HS Status: Acute (4) HTN (hypertension) Assessment and Plan: Monitor BP On admission: 130/88 Continue home medication: Losartan 100mg PO daily Status: Acute (5) Left flank pain Assessment and Plan: 12/24: patient stated today that she had a left kidney stone that was surgically treated [address] abd/pelvis: There are 2 small nonobstructing calculi lower pole left kidney. No evidence of joshua hydronephrosis. No evidence of urinary bladder calculi seen. Status posthysterectomy. Hepatomegaly with moderate to significant fatty hepatic infiltration. Borderline splenomegaly. Mild constipation. UA: f/u Abdominal US: Hepatomegaly/hepatic steatosis. No focal abnormalities with respect to the liver. Otherwise unremarkable study. Limitations of the current examination: Nondiagnostic assessment of the pancreas. Rocephin 1gm IV BID Status: Acute (6) Depression Assessment and Plan: Continue home medications: escitalopram 20mg daily, duloxetine 20mg daily Status: Acute (7) Prophylactic measure Assessment and Plan: SCDs Pepcid 20mg PO BID Heparin 5,000 units SC Q8 Heart Healthy Diet, 2gm Accuchecks Status: Acute
[2016-12-25] MEDS: (Novolin R) Insulin Human Regular 100 units/ml vial SC SCH ×2 (08:30→12:47)
[2016-12-25] MEDS ORDERED: Pneumococcal 23-Valent Vaccine IM ONE (10:00)
[2016-12-25] MEDS: Omega-3-Acid Ethyl Esters 1 GM Cap PO SCH (11:16)
--- NOTE | 2016-12-25 12:20 | CP.PCM.CON ---
History of Present Illness - History of Present Illness History of Present Illness: HPI: 46 year old female with PMhx of HTN, DM, hyperlipidemia, anxiety, depression, and arthritis, present to the ED for high triglycerides, cholesterol and hyponatremia. The patient was referred to the ED by her PMD, Dr. Chapman. She brought her lab results with her, which showed her triglycerides were 4556, cholesterol 718, sodium 126, and an A1c of 11.2. On admission, the patients cholesterol was 428 and the triglycerides were 5681. The patient reports going to the hospital for high triglycerides and cholesterol 7 years ago. Patient also reports have left flank pain and has stones in her kidneys for 3 months. She also reports having an on and off headache when she is stressed. Two weeks ago, the patient was depressed, nauseas and had episodes of vomiting but that resolved last week. Patient denies chest pain, abdominal pain, fever, chills, leg pain and swelling, nausea , and vision changes. Renal consult for hyponatremia. Pt noted to have normal serum osmolarity. Pt with history of kidney stones, unclear which type. Known to Dr. Houston Troncoso. Has severe pain in left flank, more at night time. No urinary issues. Has family history of dyslipidemia, associated with coronary events. Review of Systems - Constitutional Constitutional: absent: Anorexia, Fever - EENT Eyes: absent: Blind Spots, Blurred Vision Nose/Mouth/Throat: absent: Epistaxis, Nasal Congestion - Cardiovascular Cardiovascular: absent: Chest Pain, Edema - Respiratory Respiratory: absent: Cough, Dyspnea - Gastrointestinal Gastrointestinal: Abdominal Pain. absent: Bloating Additional comments: left flank pain - Genitourinary Genitourinary: Hx Renal/Bladder Calculi. absent: Change in Urinary Stream, Difficulty Urinating - Musculoskeletal Musculoskeletal: absent: Arthralgias, Atrophy - Neurological Neurological: absent: Tingling, Tremor - Endocrine Endocrine: absent: Change in Libido, Cold Intolorance - Hematologic/Lymphatic Hematologic: absent: Easy Bleeding, Easy Bruising Past Patient History - Infectious Disease Hx of Infectious Diseases: None - Past Medical History & Family History Past Medical History?: Yes - Past Social History Smoking Status: Never Smoked - CARDIAC Hx Hypercholesterolemia: Yes Hx Hypertension: Yes - PULMONARY Hx Tuberculosis: No - NEUROLOGICAL Hx Seizures: No - ENDOCRINE/METABOLIC Hx Diabetes Mellitus Type 2: Yes - HEMATOLOGICAL/ONCOLOGICAL Hx Human Immunodeficiency Virus (HIV): No - MUSCULOSKELETAL/RHEUMATOLOGICAL Hx Falls: No - GENITOURINARY/GYNECOLOGICAL Hx Sexually Transmitted Disorders: No - PSYCHIATRIC Hx Anxiety: Yes Hx Depression: Yes Hx Substance Use: No - SURGICAL HISTORY Hx Surgeries: Yes Hx Section: Yes Hx Hysterectomy: Yes (November 2010) Other/Comment: fibroid surgery - ANESTHESIA Hx Anesthesia: Yes Hx Anesthesia Reactions: No Meds Allergies/Adverse Reactions: Allergies Allergy/AdvReac Type Severity Reaction Status Date / Time No Known Allergies Allergy Verified 12/23/16 09:11 - Medications Medications: Current Medications Acetaminophen (Tylenol 325mg Tab) 650 mg PO Q6 PRN PRN Reason: Pain, Mild (1-3) Last Admin: 12/24/16 11:43 Dose: 650 mg Famotidine (Pepcid) 20 mg PO BID [facility] Last Admin: 12/25/16 11:16 Dose: 20 mg Fenofibrate (Tricor) 145 mg PO QPM [facility] Last Admin: 12/24/16 17:59 Dose: 145 mg Gemfibrozil (Lopid) 600 mg PO BID [facility] Last Admin: 12/25/16 11:16 Dose: 600 mg Heparin Sodium (Porcine) (Heparin) 5,000 units SC Q8 [facility] Last Admin: 12/25/16 05:06 Dose: 5,000 units Sodium Chloride (Sodium Chloride 0.9%) 1,000 mls @ 100 mls/hr IV .Q10H [facility] Last Admin: 12/25/16 03:16 Dose: 100 mls/hr Ceftriaxone Sodium 1 gm/ (Sodium Chloride) 100 mls @ 100 mls/hr IVPB Q12H [facility] Last Admin: 12/25/16 03:13 Dose: 100 mls/hr Insulin Glargine (Lantus) 10 unit SC [facility] Last Admin: 12/24/16 22:51 Dose: 10 units Insulin Human Regular (Novolin R) 0 unit SC ACHS [facility] PRN Reason: Protocol Last Admin: 12/25/16 08:30 Dose: 6 unit Losartan Potassium (Cozaar) 100 mg PO DAILY [facility] Last Admin: 12/25/16 11:17 Dose: 100 mg Sbnre-0-Tbrz Ethyl Esters (Lovaza) 1 gm PO BID [facility] Last Admin: 12/25/16 11:16 Dose: 1 gm Rosuvastatin Calcium (Crestor) 20 mg PO HS [facility] Last Admin: 12/24/16 22:47 Dose: 20 mg Trazodone HCl (Desyrel) 50 mg PO HS [facility] Last Admin: 12/24/16 22:47 Dose: 50 mg Physical Exam - Constitutional Appears: No Acute Distress - Head Exam Head Exam: ATRAUMATIC - Eye Exam Eye Exam: EOMI, Normal appearance - ENT Exam ENT Exam: Mucous Membranes Moist - Neck Exam Neck exam: Positive for: Full Rom. Negative for: Lymphadenopathy - Respiratory Exam Respiratory Exam: absent: Accessory Muscle Use, Chest Wall Tenderness - Cardiovascular Exam Cardiovascular Exam: REGULAR RHYTHM. absent: Rubs - GI/Abdominal Exam GI & Abdominal Exam: Soft. absent: Rebound - Extremities Exam Extremities exam: Negative for: pedal edema - Neurological Exam Neurological exam: Alert, Oriented x3 - Psychiatric Exam Psychiatric exam: Normal Affect, Normal Mood Results - Vital Signs Recent Vital Signs: Last Vital Signs Temp 98.4 F 12/25/16 08:00 Pulse 95 H 12/25/16 08:00 Resp 20 12/25/16 08:00 BP 135/83 12/25/16 08:00 Pulse Ox 98 12/25/16 08:00 - Labs Result Diagrams: 12/24/16 06:27 12/24/16 06:27 Labs: Laboratory Results - last 24 hr 12/24/16 12/24/16 12/24/16 16:03 21:14 23:04 POC Glucose (mg/dL) 148 H 313 H Urine Color Straw Urine Clarity Clear Urine pH 6.0 Ur Specific [place] 1.011 Urine Protein Negative Urine Glucose (UA) 3+ H Urine Ketones Trace Urine Blood Negative Urine Nitrate Negative Urine Bilirubin Negative Urine Urobilinogen Normal Ur Leukocyte Esterase Neg Urine RBC (Auto) < 1 Urine Bacteria Rare Urine HCG, Qual Negative 12/25/16 12/25/16 07:12 11:16 POC Glucose (mg/dL) 284 H 266 H Urine Color Urine Clarity Urine pH Ur Specific [place] Urine Protein Urine Glucose (UA) Urine Ketones Urine Blood Urine Nitrate Urine Bilirubin Urine Urobilinogen Ur Leukocyte Esterase Urine RBC (Auto) Urine Bacteria Urine HCG, Qual Assessment & Plan - Assessment and Plan (Free Text) Assessment: pseudohyponatremia due to high triglycerides, high serum osm noted, this does not have to be treated kidney stones, ct with small left nonobstructing kidney stones could check ca,phos,uric acid, pth, u/a, 24 hr urine w/u suggest follow up
[2016-12-25 12:27] VITALS: BP 135/83; PULSE 95; TEMP 98.4
--- NOTE | 2016-12-25 13:34 | CP.PCM.DIS ---
<Anibal Bello - Last Filed: 12/25/16 13:27> Provider - Provider Date of Admission: 12/23/16 12:10 Attending physician: Dean Manzanares DO Primary care physician: Dr Chapman Consults: Cardiology - Dr Kaminski Nephrology - Dr Camp Time Spent in preparation of Discharge (in minutes): 45 Hospital Course - Lab Results Lab Results: Most Recent Lab Values WBC 7.5 K/uL (4.8-10.8) 12/24/16 06:27 RBC 4.25 Mil/uL (3.80-5.20) 12/24/16 06:27 Hgb 12.8 g/dL (11.0-16.0) 12/24/16 06:27 Hct 37.2 % (34.0-47.0) 12/24/16 06:27 MCV 87.6 fL (81.0-99.0) 12/24/16 06:27 MCH 30.0 pg (27.0-31.0) 12/24/16 06:27 MCHC 34.3 g/dL (33.0-37.0) 12/24/16 06:27 RDW 13.3 % (11.5-14.5) 12/24/16 06:27 Plt Count 236 K/uL (130-400) 12/24/16 06:27 MPV 10.0 fL (7.2-11.7) 12/24/16 06:27 Neut % (Auto) 38.1 % (50.0-75.0) L 12/24/16 06:27 Lymph % (Auto) 54.6 % (20.0-40.0) H 12/24/16 06:27 [place] % (Auto) 6.1 % (0.0-10.0) 12/24/16 06:27 Eos % (Auto) 0.5 % (0.0-4.0) 12/24/16 06:27 Baso % (Auto) 0.7 % (0.0-2.0) 12/24/16 06:27 Neut # 2.9 K/uL (1.8-7.0) 12/24/16 06:27 Lymph # 4.1 K/uL (1.0-4.3) 12/24/16 06:27 [place] # 0.5 K/uL (0.0-0.8) 12/24/16 06:27 Eos # 0.0 K/uL (0.0-0.7) 12/24/16 06:27 Baso # 0.1 K/uL (0.0-0.2) 12/24/16 06:27 PT 10.1 SECONDS (9.7-12.2) 12/23/16 10:06 INR 0.9 12/23/16 10:06 APTT 31 SECONDS (21-34) 12/23/16 10:06 Sodium 129 mmol/L (132-148) L 12/24/16 06:27 Potassium 4.4 mmol/L (3.6-5.2) 12/24/16 06:27 Chloride 98 mmol/L (98-107) 12/24/16 06:27 Carbon Dioxide 20 mmol/L (22-30) L 12/24/16 06:27 Anion Gap 15 (10-20) 12/24/16 06:27 BUN 8 mg/dL (7-17) 12/24/16 06:27 Creatinine 0.5 MG/DL (0.7-1.2) L 12/24/16 06:27 Est GFR ( Amer) > 60 12/24/16 06:27 Est GFR (Non-Af Amer) > 60 12/24/16 06:27 POC Glucose (mg/dL) 266 mg/dL (65-110) H 12/25/16 11:16 Random Glucose 220 mg/dL (65-105) H 12/24/16 06:27 Serum Osmolality 302 mosm/kg (272-300) H 12/23/16 10:06 Calcium 7.7 mg/dl (8.6-10.4) L 12/24/16 06:27 Total Bilirubin 1.1 mg/dL (0.2-1.3) 12/24/16 06:27 AST 41 U/L (14-36) H 12/24/16 06:27 ALT 43 U/L (9-52) 12/24/16 06:27 Alkaline Phosphatase 94 U/L (38-126) 12/24/16 06:27 Troponin I 0.0160 ng/mL (0.00-0.120) 12/23/16 10:06 Total Protein 6.4 g/dL (6.3-8.3) 12/24/16 06:27 Albumin 3.1 g/dL (3.5-5.0) L 12/24/16 06:27 Globulin 3.3 gm/dL (2.2-3.9) 12/24/16 06:27 Albumin/Globulin Ratio 0.9 (1.0-2.1) L 12/24/16 06:27 Triglycerides 5681 mg/dL (0-149) H 12/23/16 10:06 Cholesterol 428 mg/dL (0-199) H 12/23/16 10:06 Lipase 137 U/L (23-300) 12/23/16 10:06 Urine Color Straw (YELLOW) 12/24/16 23:04 Urine Clarity Clear (Clear) 12/24/16 23:04 Urine pH 6.0 (5.0-8.0) 12/24/16 23:04 Ur Specific [place] 1.011 (1.003-1.030) 12/24/16 23:04 Urine Protein Negative mg/dL (NEGATIVE) 12/24/16 23:04 Urine Glucose (UA) 3+ mg/dL (Normal) H 12/24/16 23:04 Urine Ketones Trace mg/dL (NEGATIVE) 12/24/16 23:04 Urine Blood Negative (NEGATIVE) 12/24/16 23:04 Urine Nitrate Negative (NEGATIVE) 12/24/16 23:04 Urine Bilirubin Negative (NEGATIVE) 12/24/16 23:04 Urine Urobilinogen Normal mg/dL (0.2-1.0) 12/24/16 23:04 Ur Leukocyte Esterase Neg Debbie/uL (Negative) 12/24/16 23:04 Urine RBC (Auto) < 1 /hpf (0-3) 12/24/16 23:04 Urine Bacteria Rare (<OCC) 12/24/16 23:04 Urine Osmolality 801 mosm/kg (300-1000) 12/23/16 10:06 Ur Random Sodium 56 mmol/L 12/23/16 10:06 Urine HCG, Qual Negative (NEGATIVE) 12/24/16 23:04 - Hospital Course Hospital Course: CC: high triglycerides, cholesterol, and hyponatremia HPI: 46 year old female with PMhx of HTN, DM, hyperlipidemia, anxiety, depression, and arthritis, present to the ED for high triglycerides, cholesterol and hyponatremia. The patient was referred to the ED by her PMD, Dr. Chapman. She brought her lab results with her, which showed her triglycerides were 4556, cholesterol 718, sodium 126, and an A1c of 11.2. On admission, the patients cholesterol was 428 and the triglycerides were 5681. The patient reports going to the hospital for high triglycerides and cholesterol 7 years ago. Patient also reports have left flank pain and has stones in her kidneys for 3 months. She also reports having an on and off headache when she is stressed. Two weeks ago, the patient was depressed, nauseas and had episodes of vomiting but that resolved last week. Patient denies chest pain, abdominal pain, fever, chills, leg pain and swelling, nausea , and vision changes. PMD: Dr. Chapman PMHx: HTN, hyperlipidemia, DM, anxiety, depression, arthritis, two episodes of tachycardia (hospitalized 06/2016, 07/2016) PSx: ovarian cyst removal 1999, Cesarian section 2001 FamHx: mother/grandmother- [place]; "everyone has DM and high cholesterol" SocHx: denies tobacco, alcohol, and drug use; lives with her son; unemployed Allergies: NKDA Medications: Metformin 1,000mg BID, Glimepiride 4mg BID, Losartan potassium 100mg daily, trazadone 50mg daily, escitalopram 20mg daily, duloxetine 20mg daily, fenofibrate 200mg daily, atorvastatin 20mg daily, topiramate 50mg daily , vitamin D2 1.25mg once a week. Hospital Course: Dr Kaminski of cardiology was consulted to help address her high triglycerides and high cholesterol. It was decided to start the patient on Tricor 145mg po qpm, lopid 600mg po bid, and lovaza 1gm po bid. A CT abd/pelvis was ordered to investigate the patients complaint of left flank pain. The CT abd /pelvis showed "there are 2 small nonobstructing calculi lower pole left kidney. No evidence of joshua hydronephrosis. No evidence of urinary bladder calculi seen." The patient was hyponatremic thus nephrology was consulted. Dr Julio of nephorology concluded that the pseudohyponatremia is due to high triglycerides and that this does not have to be treated. She was advised to follow up with her PMD for her high triglycerides and high cholesterol as well as to attain a referral for a urologist who can properly address her nonobstructing left kidney stone. Discharge Exam - Head Exam Head Exam: ATRAUMATIC - Eye Exam Eye Exam: EOMI, Normal appearance, PERRL Pupil Exam: NORMAL ACCOMODATION, PERRL - ENT Exam ENT Exam: Mucous Membranes Moist - Neck Exam Neck exam: Full Rom - Respiratory Exam Respiratory Exam: NORMAL BREATHING PATTERN, UNREMARKABLE. absent: Wheezes - Cardiovascular Exam Cardiovascular Exam: REGULAR RHYTHM, Rubs, +S1, +S2 - GI/Abdominal Exam GI & Abdominal Exam: Normal Bowel Sounds, Soft, Unremarkable. absent: Tenderness - Rectal Exam Rectal Exam: Deferred - Neurological Exam Neurological exam: Alert, Oriented x3 - Psychiatric Exam Psychiatric exam: Normal Affect, Normal Mood - Skin Skin Exam: Dry, Intact, Normal Color, Warm Discharge Plan - Discharge Medications Prescriptions: Fenofibrate [Tricor] 145 mg PO QPM #30 tab Gemfibrozil [Lopid] 600 mg PO BID #30 tab Ditqz-1-Depi Ethyl Esters 1 GM [Lovaza] 1 gm PO BID #30 sgl - Follow Up Plan Condition: STABLE Disposition: HOME/ ROUTINE Additional Instructions: Patient is medically stable for discharge. Please let the patient know to make an appointment to follow up with her PMD, Dr Chapman, in 1 week. Please let the patient know that she should follow obtain a referral from her PMD to see a urologist regarding the 2 small nonobstructing calculi in the lower pole left kidney. The patient is to continue her usual home medications. The patient is to begin taking the following NEW medications to address her hypertriglyceredemia and high cholesterol: 1. Lopid 600mg po BID 2. Tricor 145mg po Qpm 3. Lovaza 1gm po daily Please take care and be well. <Dean Manzanares - Last Filed: 12/25/16 13:40> Provider - Provider Date of Admission: 12/23/16 12:10 Attending physician: Dean Manzanares, DO Hospital Course - Lab Results Lab Results: Most Recent Lab Values WBC 7.5 K/uL (4.8-10.8) 12/24/16 06:27 RBC 4.25 Mil/uL (3.80-5.20) 12/24/16 06:27 Hgb 12.8 g/dL (11.0-16.0) 12/24/16 06:27 Hct 37.2 % (34.0-47.0) 12/24/16 06:27 MCV 87.6 fL (81.0-99.0) 12/24/16 06:27 MCH 30.0 pg (27.0-31.0) 12/24/16 06:27 MCHC 34.3 g/dL (33.0-37.0) 12/24/16 06:27 RDW 13.3 % (11.5-14.5) 12/24/16 06:27 Plt Count 236 K/uL (130-400) 12/24/16 06:27 MPV 10.0 fL (7.2-11.7) 12/24/16 06:27 Neut % (Auto) 38.1 % (50.0-75.0) L 12/24/16 06:27 Lymph % (Auto) 54.6 % (20.0-40.0) H 12/24/16 06:27 [place] % (Auto) 6.1 % (0.0-10.0) 12/24/16 06:27 Eos % (Auto) 0.5 % (0.0-4.0) 12/24/16 06:27 Baso % (Auto) 0.7 % (0.0-2.0) 12/24/16 06:27 Neut # 2.9 K/uL (1.8-7.0) 12/24/16 06:27 Lymph # 4.1 K/uL (1.0-4.3) 12/24/16 06:27 [place] # 0.5 K/uL (0.0-0.8) 12/24/16 06:27 Eos # 0.0 K/uL (0.0-0.7) 12/24/16 06:27 Baso # 0.1 K/uL (0.0-0.2) 12/24/16 06:27 PT 10.1 SECONDS (9.7-12.2) 12/23/16 10:06 INR 0.9 12/23/16 10:06 APTT 31 SECONDS (21-34) 12/23/16 10:06 Sodium 129 mmol/L (132-148) L 12/24/16 06:27 Potassium 4.4 mmol/L (3.6-5.2) 12/24/16 06:27 Chloride 98 mmol/L (98-107) 12/24/16 06:27 Carbon Dioxide 20 mmol/L (22-30) L 12/24/16 06:27 Anion Gap 15 (10-20) 12/24/16 06:27 BUN 8 mg/dL (7-17) 12/24/16 06:27 Creatinine 0.5 MG/DL (0.7-1.2) L 12/24/16 06:27 Est GFR ( Amer) > 60 12/24/16 06:27 Est GFR (Non-Af Amer) > 60 12/24/16 06:27 POC Glucose (mg/dL) 266 mg/dL (65-110) H 12/25/16 11:16 Random Glucose 220 mg/dL (65-105) H 12/24/16 06:27 Serum Osmolality 302 mosm/kg (272-300) H 12/23/16 10:06 Calcium 7.7 mg/dl (8.6-10.4) L 12/24/16 06:27 Total Bilirubin 1.1 mg/dL (0.2-1.3) 12/24/16 06:27 AST 41 U/L (14-36) H 12/24/16 06:27 ALT 43 U/L (9-52) 12/24/16 06:27 Alkaline Phosphatase 94 U/L (38-126) 12/24/16 06:27 Troponin I 0.0160 ng/mL (0.00-0.120) 12/23/16 10:06 Total Protein 6.4 g/dL (6.3-8.3) 12/24/16 06:27 Albumin 3.1 g/dL (3.5-5.0) L 12/24/16 06:27 Globulin 3.3 gm/dL (2.2-3.9) 12/24/16 06:27 Albumin/Globulin Ratio 0.9 (1.0-2.1) L 12/24/16 06:27 Triglycerides 5681 mg/dL (0-149) H 12/23/16 10:06 Cholesterol 428 mg/dL (0-199) H 12/23/16 10:06 Lipase 137 U/L (23-300) 12/23/16 10:06 Urine Color Straw (YELLOW) 12/24/16 23:04 Urine Clarity Clear (Clear) 12/24/16 23:04 Urine pH 6.0 (5.0-8.0) 12/24/16 23:04 Ur Specific [place] 1.011 (1.003-1.030) 12/24/16 23:04 Urine Protein Negative mg/dL (NEGATIVE) 12/24/16 23:04 Urine Glucose (UA) 3+ mg/dL (Normal) H 12/24/16 23:04 Urine Ketones Trace mg/dL (NEGATIVE) 12/24/16 23:04 Urine Blood Negative (NEGATIVE) 12/24/16 23:04 Urine Nitrate Negative (NEGATIVE) 12/24/16 23:04 Urine Bilirubin Negative (NEGATIVE) 12/24/16 23:04 Urine Urobilinogen Normal mg/dL (0.2-1.0) 12/24/16 23:04 Ur Leukocyte Esterase Neg Debbie/uL (Negative) 12/24/16 23:04 Urine RBC (Auto) < 1 /hpf (0-3) 12/24/16 23:04 Urine Bacteria Rare (<OCC) 12/24/16 23:04 Urine Osmolality 801 mosm/kg (300-1000) 12/23/16 10:06 Ur Random Sodium 56 mmol/L 12/23/16 10:06 Urine HCG, Qual Negative (NEGATIVE) 12/24/16 23:04 Attending/Attestation - Attestation I have personally seen and examined this patient.: Yes I have fully participated in the care of the patient.: Yes I have reviewed all pertinent clinical information, including history, physical exam and plan: Yes Notes (Text): Medical Attending: Patient was seen and examined by me. Agree with the above note by the resident. The patient is doing very well. She did not have any new concerns. She has been seen by cardiology as well as nephrology. Her Na has been stable. It appears slightly low - probably this is secondary to the very elevated triglycerides levels. So she will DC today. She has new medications to help try to control the high triglyceride levels. thank you Dean Manzanares
[2016-12-25 14:10] LABS: URIC ACID 2.7 mg/dL (2.2-7.5)
[2016-12-25 15:43] LABS: SQUAMOUS EPITHIAL 1 /hpf (0-5); URINE BILIRUBIN NEGATIVE (NEGATIVE); URINE BLOOD NEGATIVE (NEGATIVE); URINE CLARITY Clear (Clear); URINE COLOR Yellow (YELLOW); URINE GLUCOSE (UA) 3+ mg/dL (Normal); URINE LEUKOCYTE ESTERASE NEG Leu/uL (Negative); URINE NITRATE NEGATIVE (NEGATIVE); URINE PROTEIN NEGATIVE (NEGATIVE); URINE UROBILINOGEN NORMAL mg/dL (0.2-1.0)
--- NOTE | 2016-12-26 12:06 | CARD ---
APPROVED REPORT EKG Measurement Heart [id number] <Conclusion> Normal sinus rhythm Normal ECG
== END 2016-12-25 15:49 | disposition home or self-care (01) | DRG 299 ==
LOC: C.ER 09:06 → C.9E 12:10 → C.3T 12:58
PROVIDERS: ADMIT Hospitalist; ATTEND Hospitalist
DX: E78.1 Pure hyperglyceridemia (principal); E87.1 Hypo-osmolality and hyponatremia; N20.0 Calculus of kidney; I10 Essential (primary) hypertension; E11.9 Type 2 diabetes mellitus without complications; E78.00 Pure hypercholesterolemia, unspecified; F41.9 Anxiety disorder, unspecified; F32.9 Major depressive disorder, single episode, unspecified; M19.90 Unspecified osteoarthritis, unspecified site

== ENCOUNTER 2016-12-25 22:29 | Emergency (ER) | payer OTHER ==
[2016-12-25 22:29] VITALS: BMI 25.7
[2016-12-25 22:34] VITALS: TEMP 98.3; O2SAT 98
[2016-12-25] MEDS ORDERED: Lidocaine 5% Patch TD STA (23:00)
[2016-12-25] MEDS ORDERED: Oxycodone/Acetaminophen 5/325 mg Tab PO STA (23:00)
[2016-12-25] MEDS ORDERED: Oxycodone/Acetaminophen 5/325 mg Tab ONE (23:02)
[2016-12-25] MEDS ORDERED: Lidocaine 5% Patch TD ONE (23:02)
[2016-12-26 00:25] VITALS: BP 156/100; PULSE 100; RESP 16
--- NOTE | 2016-12-26 00:25 | C.PDOC ---
History Of Present Illness 46 year old female who presents to the ER with a complaint of upper left arm pain. Patient was admitted to the hospital for high cholesterol and HTN 2 days ago and was discharged today with a pneumo vaccine to the upper left arm. Patient states initially she felt fine, however, as the day progressed she began having pain. Patient reports the pain has gotten so bad it hurts to lift up her arm; she reports icing her arm and taking tylenol with no relief. Denies fever or chills. Time Seen by Provider: 12/25/16 22:39 Chief Complaint (Nursing): Upper Extremity Problem/Injury History Per: Patient History/Exam Limitations: no limitations Onset/Duration Of Symptoms: Hrs Current Symptoms Are (Timing): Still Present Exacerbating Factor(s): Nothing Recent travel outside of the [place]: No Past Medical History Reviewed: Historical Data, Nursing Documentation, Vital Signs Vital Signs: Last Vital Signs Temp 98.3 F 12/25/16 22:32 Pulse 100 H 12/26/16 00:24 Resp 16 12/26/16 00:24 BP 156/100 H 12/26/16 00:24 Pulse Ox 98 12/26/16 01:52 - Medical History PMH: Anxiety, Depression, Diabetes, HTN, Hypercholesterolemia Denies: Sexually Transmitted Disease Surgical History: Family History: States: Unknown Family Hx - Social History Hx Tobacco Use: No Hx Alcohol Use: No Hx Substance Use: No - Immunization History Hx Tetanus Toxoid Vaccination: Yes Hx Influenza Vaccination: No Hx Pneumococcal Vaccination: No Review Of Systems Constitutional: Negative for: Fever, Chills Musculoskeletal: Positive for: Arm Pain Physical Exam - Physical Exam Appears: Non-toxic, Other (Anxious) Skin: Normal Color, Warm, Dry Head: Atraumatic, Normacephalic Oral Mucosa: Moist Neck: Normal, Supple Cardiovascular: Rhythm Regular (Tachycardic), No Murmur Respiratory: Normal Breath Sounds, No Rales, No Rhonchi, No Wheezing Extremity: Normal ROM (x4), Tenderness (To palpation at injection site, no eruthema, no warmth), No Swelling Neurological/Psych: Oriented x3, Normal Speech, Normal Cognition ED Course And Treatment O2 Sat by Pulse Oximetry: 98 (Room air) Pulse Ox Interpretation: Normal Progress Note: Patient was offered morphine but she refused because she does not want another injection. Patient was offer percocet but she refused because she states her PMD does not want her taking NSAIDs or other "strong pain medication" due to her decreased kidney function. Case discussed with Dr. Muro who advised to administer benadryl IV. On reevaluation, patient's pain has much improved; however, her HR is still at 110 bpm. Patient is accompanied at the ER with her friend who needs to leave; patient states she wants to leave with her friend. Disposition - Disposition Disposition: HOME/ ROUTINE Disposition Time: 00:23 Condition: STABLE Additional Instructions: Follow up with PMD within 1-2 days. Return to ED if feel worse. Instructions: Pneumococcal Polyvalent Vaccine (By injection) Print Language: OCCITAN - Clinical Impression Clinical Impression: Arm pain, Reaction to pneumococcal immunization - Scribe Statement The provider has reviewed the documentation as recorded by the Scribcanelo Pierre All medical record entries made by the Scribe were at my direction and personally dictated by me. I have reviewed the chart and agree that the record accurately reflects my personal performance of the history, physical exam, medical decision making, and the department course for this patient. I have also personally directed, reviewed, and agree with the discharge instructions and disposition.
== END 2016-12-26 00:29 | disposition home or self-care (01) ==
LOC: C.ER 22:29
DX: T88.1XXA Other complications following immunization, not elsewhere classified, initial encounter (principal); M79.622 Pain in left upper arm

== ENCOUNTER 2017-04-26 16:58 | Emergency (ER) | payer OTHER ==
[2017-04-26 17:18] VITALS: BMI 24.0
[2017-04-26 17:20] VITALS: O2SAT 98
[2017-04-26 18:10] LABS: BASO # 0.1 K/uL (0.0-0.2); BASO % 0.7 % (0.0-2.0); EOS % 0.5 % (0.0-4.0); HEMATOCRIT 41.7 % (34.0-47.0); LYMPH # 4.3 K/uL (1.0-4.3); LYMPH % 41.9 % (20.0-40.0); MEAN CELL VOLUME 86.2 fL (81.0-99.0); MEAN CORPUSCULAR HEMOGLOBIN 29.2 pg (27.0-31.0); MEAN CORPUSCULAR HGB CONC 33.8 g/dL (33.0-37.0); MEAN PLATELET VOLUME 9.4 fL (7.2-11.7); MONO # 0.6 K/uL (0.0-0.8); MONO % 5.8 % (0.0-10.0); RED CELL DISTRIBUTION WIDTH 13.9 % (11.5-14.5); WHITE BLOOD COUNT 10.3 K/uL (4.8-10.8)
[2017-04-26 18:21] LABS: ALB/GLOB RATIO 1.4 (1.0-2.1); ALCOHOL SERUM < 10 mg/dl (0-10); ALKALINE PHOSPHATASE 95 U/L (38-126); ALT/SGPT 57 U/L (9-52); AST/SGOT 42 U/L (14-36); BILIRUBIN,TOTAL 1.3 mg/dL (0.2-1.3); BLOOD UREA NITROGEN 10 mg/dL (7-17); CALCIUM 8.8 mg/dl (8.6-10.4); CARBON DIOXIDE 23 mmol/L (22-30); CHLORIDE 95 mmol/L (98-107); CHOLESTEROL 310 mg/dL (0-199); GFR AFRICAN-AMERICAN > 60; GLUCOSE,RANDOM 247 mg/dL (65-105); POTASSIUM 3.8 mmol/L (3.6-5.2); RBC URINE 3 /hpf (0-3); SODIUM 130 mmol/L (132-148); TOTAL PROTEIN 7.8 g/dL (6.3-8.3); URINE BACTERIA RARE (<OCC); URINE BILIRUBIN NEGATIVE (NEGATIVE); URINE BLOOD NEGATIVE (NEGATIVE); URINE COLOR Yellow (YELLOW); URINE GLUCOSE (UA) 3+ mg/dL (Normal); URINE KETONE TRACE mg/dL (NEGATIVE); URINE LEUKOCYTE ESTERASE NEG Leu/uL (Negative); URINE PROTEIN NEGATIVE (NEGATIVE); URINE UROBILINOGEN NORMAL mg/dL (0.2-1.0); WBC URINE < 1 /hpf (0-5)
--- NOTE | 2017-04-26 19:22 | C.PDOC ---
History Of Present Illness 47 year old female presents to the ED for evaluation of an intermittent cramping lower abdominal pain which began around 2 weeks ago. Patient also notes occasional vomiting. Patient states she was seen at her PMD's office earlier today and advised to present to the ED for further evaluation. Patient states she has been compliant with her medication and denies fever, chills, chest pain and shortness of breath. Time Seen by Provider: 04/26/17 17:47 Chief Complaint (Nursing): GI Problem History Per: Patient History/Exam Limitations: no limitations Onset/Duration Of Symptoms: Intermittent Episodes (2 weeks ) Current Symptoms Are (Timing): Still Present Location Of Pain/Discomfort: Diffuse Radiation Of Pain To:: None Quality Of Discomfort: Cramping, "Pain" Associated Symptoms: Vomiting. denies: Fever, Chills Additional History Per: Patient Past Medical History Reviewed: Historical Data, Nursing Documentation, Vital Signs Vital Signs: Last Vital Signs Temp 98 F 04/26/17 19:46 Pulse 81 04/26/17 19:46 Resp 20 04/26/17 19:46 BP 152/71 H 04/26/17 19:46 Pulse Ox 98 04/26/17 19:46 - Medical History PMH: Anxiety, Depression, Diabetes, HTN, Hypercholesterolemia Denies: Hepatitis, HIV, Seizures, Sexually Transmitted Disease Surgical History: Family History: States: Unknown Family Hx - Social History Hx Tobacco Use: No Hx Alcohol Use: No Hx Substance Use: No - Immunization History Hx Tetanus Toxoid Vaccination: Yes Hx Influenza Vaccination: Yes Hx Pneumococcal Vaccination: Yes Review Of Systems Constitutional: Negative for: Fever, Chills Cardiovascular: Negative for: Chest Pain Respiratory: Negative for: Shortness of Breath Gastrointestinal: Positive for: Vomiting, Abdominal Pain Physical Exam - Physical Exam Appears: Non-toxic, No Acute Distress Skin: Normal Color, Warm, Dry Head: Atraumatic, Normacephalic Eye(s): bilateral: Normal Inspection Oral Mucosa: Moist Neck: Supple Chest: Symmetrical, No Deformity, No Tenderness Cardiovascular: Rhythm Regular, No Murmur Respiratory: Normal Breath Sounds, No Rales, No Rhonchi, No Wheezing Gastrointestinal/Abdominal: Soft, Tenderness (vague ), No Guarding, No Rebound, Other (obese, dull to percussion ) Extremity: Normal ROM, Capillary Refill (less than 2 seconds ) Neurological/Psych: Oriented x3, Normal Speech, Normal Cognition Gait: Steady ED Course And Treatment - Laboratory Results Result Diagrams: 04/26/17 18:01 04/26/17 18:01 Lab Interpretation: Normal (ua neg) Urine POC: Negative (LFT's and triglycerides wnl, trop neg.) ECG Interpretation: Normal O2 Sat by Pulse Oximetry: 98 (on RA) Pulse Ox Interpretation: Normal - Radiology CXR: Interpreted by Me CXR Interpretation: Yes: No Acute Disease - Other Rad abd x 2 X-Ray: Interpreted by Me (+FOS) Progress Note: Bloodwork, Urinalysis, EKG, and Obstructive Series Abdomen XR ordered and reviewed Reevaluation Time: 19:25 Reassessment Condition: Improved Medical Decision Making Medical Decision Making: abd colic, constipation LOW susp of pancreatitis as lipase and triglycerides wnl LOW susp of atypical cardiac presentation as EKG and trop neg and no assoc cardiac s/s. stool softners and laxatives educated. Disposition Doctor Will See Patient In The: Office Counseled Patient/Family Regarding: Studies Performed, Diagnosis - Disposition Referrals: Brendon Chapman MD [Staff Provider] - Disposition: HOME/ ROUTINE Disposition Time: 19:26 Condition: GOOD Additional Instructions: constipation: Jasmyn brian botella de Citrato de Magnesio ahora y re-evalua mcdonald molestia del abdomen despues de usar el [place] 2-3 veces Sigue Colace 100 mg (esuavesante de los heces) 2 veces al lizzie para ayudar en prevenir el estrenemeinto. Cambios de dieta y ejerecisio Jasmyn mas agua Sigue con Dr. Chapman Prescriptions: Docusate [Colace] 100 mg PO BID #60 cap Magnesium Citrate [[facility] Magnesium Citrate] 300 ml PO ONCE PRN #1 bottle PRN Reason: Constipation Instructions: Constipation (ED) Forms: [facility] (Mexican) Print Language: CENTRAL AFRICAN - Clinical Impression Clinical Impression: Hx of abdominal colic - Scribe Statement The provider has reviewed the documentation as recorded by the Scribe (Julieta Thomas) Provider Attestation: All medical record entries made by the Scribe were at my direction and personally dictated by me. I have reviewed the chart and agree that the record accurately reflects my personal performance of the history, physical exam, medical decision making, and the department course for this patient. I have also personally directed, reviewed, and agree with the discharge instructions and disposition.
[2017-04-26 19:47] VITALS: BP 152/71; PULSE 81; RESP 20; TEMP 98
--- NOTE | 2017-04-27 07:13 | RAD ---
PROCEDURE: Radiographs of the chest and abdomen (obstructive series) HISTORY: abd pain COMPARISON: None available. TECHNIQUE: AP radiograph of the chest, with upright and supine radiographs of the abdomen. FINDINGS: CHEST: Heart size appears within normal limits. No focal consolidation, significant pleural effusion, or definite pneumothorax identified.Please note that chest x-ray has limited sensitivity for the detection of pulmonary masses. ABDOMEN AND PELVIS: Nonobstructive bowel gas pattern. No definite free air. Moderate constipation. No acute osseous abnormality is detected. IMPRESSION: Moderate constipation.
--- NOTE | 2017-04-28 08:32 | CARD ---
APPROVED REPORT EKG Measurement Heart [id number] <Conclusion> Normal sinus rhythm Normal ECG
== END 2017-04-26 20:08 | disposition home or self-care (01) ==
LOC: C.ER 16:58
DX: R10.84 Generalized abdominal pain (principal)